=== PATIENT | male | born 1955 | race Caucasian/White ===

== ENCOUNTER 2018-09-16 11:02 | Day surgery (SDC) | payer OTHER ==
[~2018-09-16 11:02] MED LIST: CIPROFLOXACIN 400 MG in D5W 200 ML IVPB; GLYCOPYRROLATE 0.4 MG INJ; NEOSTIGMINE 3 MG/3 ML SYRINGE
[2018-09-16] MEDS ORDERED: PROPOFOL 20 ML (13:26)
[2018-09-16] MEDS ORDERED: MIDAZOLAM 1 MG/ML 2 ML INJ (13:26)
[2018-09-16] MEDS ORDERED: LIDOCAINE 1% (MDV) 20 ML INJ (13:26)
[2018-09-16] MEDS: IOHEXOL 300MG/ML 30 ML BTL (13:27)
[2018-09-16] MEDS ORDERED: ROCURONIUM 50 MG INJ (13:31)
[2018-09-16] MEDS ORDERED: DEXAMETHASONE 4 MG/ML 5 ML INJ (13:36)
[2018-09-16] MEDS ORDERED: FENTAnyl 50 MCG/ML VIAL (13:41)
[2018-09-16] MEDS ORDERED: ONDANSETRON 4 MG INJ IV (15:00)
[2018-09-16] MEDS ORDERED: hydrALAzine 20 MG INJ IV (15:00)
[2018-09-16] MEDS ORDERED: LABETALOL HCL 20MG INJ IV (15:00)
[2018-09-16] MEDS ORDERED: CIPROFLOXACIN 400MG/D5W 200 ML (15:02)
[2018-09-16] MEDS: HYDROmorphONE 1 MG/5 ML IV SYRINGE IV ×2 (15:05→15:22)
[2018-09-16] MEDS: HYDROCODONE/APAP (5/325) TAB PO (16:53)
== END 2018-09-16 17:30 | disposition home or self-care (01) ==
LOC: SDS 11:02
DX: N20.1 Calculus of ureter (principal)
CPT/HCPCS: 52332; 74430; 88300

== ENCOUNTER 2018-10-15 09:15 | Inpatient (IN) | payer OTHER ==
[2018-10-15] MEDS: SOD CHLORIDE 0.9% 1,000 ML IV ×3 (12:06→23:28)
[2018-10-15] MEDS: CEFTRIAXONE 1 GM/50 ML (PMX) 50 ML IVPB (12:08)
[2018-10-15] MEDS: morphine 2 MG INJ IV ×2 (12:09→19:55)
[2018-10-15 13:09] LABS: ADD MAN DIFF? NO
[2018-10-15 13:14] LABS: BASOPHILS % 0.3 % (0.0-2.0); EOSINOPHILS % 0.4 % (0.0-7.0); HEMATOCRIT 39.1 % (42.0-52.0); HEMOGLOBIN 13.1 g/dl (14.0-18.0); LYMPHOCYTES # 1.6 10^3/ul (0.8-2.9); LYMPHOCYTES % 15.4 % (15.0-51.0); MEAN CORPUSCULAR HEMOGLOBIN 30.4 pg (29.0-33.0); MEAN CORPUSCULAR HGB CONC 33.5 g/dl (32.0-37.0); MEAN CORPUSCULAR VOLUME 90.7 fl (82.0-101.0); MEAN PLATELET VOLUME 9.8 fl (7.4-10.4); MONOCYTES % 9.9 % (0.0-11.0); NEUTROPHIL # 7.5 10^3/ul (1.6-7.5); NEUTROPHILS % 73.6 % (39.0-77.0); PLATELET COUNT 129 10^3/UL (140-415); RED BLOOD COUNT 4.31 10^6/ul (4.70-6.10); RED CELL DISTRIBUTION WIDTH 12.9 % (11.5-14.5)
[2018-10-15 13:14] LABS: WHITE BLOOD COUNT 10.2 10^3/ul (4.8-10.8)
[2018-10-15 13:32] LABS: ANION GAP 10 (5-13); BLOOD UREA NITROGEN 42 mg/dl (7-20); CALCIUM 8.4 mg/dl (8.4-10.2); CARBON DIOXIDE 22 mmol/L (21-31); CHLORIDE 108 mmol/L (97-110); CREATININE 8.22 mg/dl (0.61-1.24); Estimated GFR 7 mL/min (>60); GLUCOSE 84 mg/dl (70-220); POTASSIUM 4.5 mmol/L (3.5-5.1); SODIUM 140 mmol/L (135-144)
[2018-10-15 19:59] LABS: INR 1.08; PROTIME 14.1 Sec (11.9-14.9); PT RATIO 1.1
[2018-10-15] MEDS: GABAPENTIN 100 MG CAP PO (21:19)
[2018-10-15] MEDS ORDERED: ONDANSETRON 4 MG INJ IV (22:30)
[2018-10-15 23:19] LABS: ADD UMIC YES; UR ASCORBIC ACID NEGATIVE (NEGATIVE); UR BACTERIA FEW /HPF (NONE SEEN); UR BILIRUBIN (Dip) NEGATIVE (NEGATIVE); UR BLOOD (Dip) 3+ mg/dL (NEGATIVE); UR CLARITY CLOUDY (CLEAR); UR COLOR YELLOW (YELLOW); UR GLUCOSE (Dip) NEGATIVE (NEGATIVE); UR KETONES (Dip) NEGATIVE (NEGATIVE); UR LEUKOCYTE ESTERASE (Dip) 3+ Leu/ul (NEGATIVE); UR MUCUS FEW /HPF (NONE SEEN); UR NITRITE (Dip) NEGATIVE (NEGATIVE); UR RBC > 182 /HPF (0-5); UR SPECIFIC GRAVITY (Dip) 1.008 (1.003-1.030); UR TOTAL PROTEIN (Dip) 2+ mg/dl (NEGATIVE); UR UROBILINOGEN (Dip) NEGATIVE (NEGATIVE); UR WBC 93 /HPF (0-5)
[2018-10-16 07:04] LABS: ANION GAP 7 (5-13); BLOOD UREA NITROGEN 54 mg/dl (7-20); CALCIUM 8.1 mg/dl (8.4-10.2); CARBON DIOXIDE 23 mmol/L (21-31); CHLORIDE 108 mmol/L (97-110); CREATININE 10.18 mg/dl (0.61-1.24); Estimated GFR 5 mL/min (>60); GLUCOSE 88 mg/dl (70-220); POTASSIUM 4.8 mmol/L (3.5-5.1); SODIUM 138 mmol/L (135-144)
[2018-10-16 07:04] LABS: PHOSPHORUS 5.8 mg/dl (2.5-4.9)
[2018-10-16] MEDS: SOD CHLORIDE 0.9% 1,000 ML IV ×3 (08:00→23:58)
[2018-10-16] MEDS: GABAPENTIN 100 MG CAP PO ×3 (08:32→21:25)
[2018-10-16] MEDS: morphine 2 MG INJ IV (10:19)
[2018-10-16] MEDS: CEFTRIAXONE 1 GM/50 ML (PMX) 50 ML IVPB (12:58)
[2018-10-16] MEDS: METOPROLOL (XL) 25 MG TAB PO (12:59)
[2018-10-16] MEDS: hydrALAzine 20 MG INJ IV (16:20)
[2018-10-16] MEDS ORDERED: LIDOCAINE 2% 20 ML UROJET SYRINGE (17:27)
[2018-10-16] MEDS ORDERED: IOHEXOL 300MG/ML 30 ML BTL (17:28)
[2018-10-16] MEDS ORDERED: PROPOFOL 20 ML (18:20)
[2018-10-16] MEDS ORDERED: ONDANSETRON 4 MG INJ (18:20)
[2018-10-16] MEDS ORDERED: ROCURONIUM 50 MG INJ (18:20)
[2018-10-16] MEDS ORDERED: LIDOCAINE 2% (SDV) 5 ML INJ (18:20)
[2018-10-16] MEDS ORDERED: SUGAMMADEX SODIUM 200 MG/2 ML VIAL IV (18:41)
[2018-10-16] MEDS: LABETALOL HCL 20MG INJ IV (19:18)
[2018-10-16] MEDS ORDERED: hydrALAzine 20 MG INJ IV (19:30)
[2018-10-16] MEDS: HYDROmorphONE 1 MG/5 ML IV SYRINGE IV ×3 (19:33→19:58)
[2018-10-16] MEDS: ONDANSETRON 4 MG INJ IV (19:33)
[2018-10-17] MEDS: SOD CHLORIDE 0.9% 1,000 ML IV ×2 (04:00→14:00)
[2018-10-17] MEDS: morphine 2 MG INJ IV ×3 (04:42→21:04)
[2018-10-17 06:06] LABS: ADD MAN DIFF? NO
[2018-10-17 06:26] LABS: WHITE BLOOD COUNT 10.1 10^3/ul (4.8-10.8)
[2018-10-17 06:26] LABS: BASOPHILS % 0.2 % (0.0-2.0); EOSINOPHILS % 0.2 % (0.0-7.0); HEMATOCRIT 41.5 % (42.0-52.0); HEMOGLOBIN 13.6 g/dl (14.0-18.0); LYMPHOCYTES # 0.9 10^3/ul (0.8-2.9); LYMPHOCYTES % 8.9 % (15.0-51.0); MEAN CORPUSCULAR HEMOGLOBIN 30.5 pg (29.0-33.0); MEAN CORPUSCULAR HGB CONC 32.8 g/dl (32.0-37.0); MEAN PLATELET VOLUME 10.1 fl (7.4-10.4); MONOCYTES % 9.8 % (0.0-11.0); NEUTROPHIL # 8.2 10^3/ul (1.6-7.5); NEUTROPHILS % 80.4 % (39.0-77.0); PLATELET COUNT 137 10^3/UL (140-415); RED BLOOD COUNT 4.46 10^6/ul (4.70-6.10); RED CELL DISTRIBUTION WIDTH 13.1 % (11.5-14.5)
[2018-10-17 06:53] LABS: ANION GAP 10 (5-13); BLOOD UREA NITROGEN 51 mg/dl (7-20); CALCIUM 8.7 mg/dl (8.4-10.2); CARBON DIOXIDE 20 mmol/L (21-31); CHLORIDE 110 mmol/L (97-110); CREATININE 8.62 mg/dl (0.61-1.24); Estimated GFR 6 mL/min (>60); GLUCOSE 140 mg/dl (70-220); PHOSPHORUS 4.7 mg/dl (2.5-4.9); POTASSIUM 5.2 mmol/L (3.5-5.1); SODIUM 140 mmol/L (135-144); URIC ACID 10.2 mg/dl (3.1-7.9)
[2018-10-17] MEDS: GABAPENTIN 100 MG CAP PO ×3 (08:15→21:01)
[2018-10-17] MEDS: CALCIUM ACETATE 667 MG CAP PO ×3 (08:15→17:55)
[2018-10-17] MEDS: METOPROLOL (XL) 25 MG TAB PO (08:16)
[2018-10-17] MEDS: PANTOPRAZOLE 40 MG INJ IV (12:00)
[2018-10-17] MEDS: SODIUM POLYSTYRENE 15 GM KIT (POWDER + SORBITOL) PO (13:02)
[2018-10-17] MEDS: CEFEPIME 1GM/50 ML (PMX) 50 ML IVPB (13:02)
[2018-10-17] MEDS: COLCHICINE 0.6 MG TAB PO ×2 (13:02→16:26)
[2018-10-17] MEDS: ACETAMINOPHEN 500 MG TAB PO (13:03)
[2018-10-17] MEDS: hydrALAzine 20 MG INJ IV (13:03)
[2018-10-17 13:07] LABS: ADD UMIC YES; UR ASCORBIC ACID NEGATIVE (NEGATIVE); UR BILIRUBIN (Dip) NEGATIVE (NEGATIVE); UR BLOOD (Dip) 3+ mg/dL (NEGATIVE); UR CLARITY SLIGHTLY CLOUDY (CLEAR); UR COLOR YELLOW (YELLOW); UR GLUCOSE (Dip) NEGATIVE (NEGATIVE); UR KETONES (Dip) NEGATIVE (NEGATIVE); UR LEUKOCYTE ESTERASE (Dip) TRACE Leu/ul (NEGATIVE); UR NITRITE (Dip) NEGATIVE (NEGATIVE); UR RBC > 182 /HPF (0-5); UR SPECIFIC GRAVITY (Dip) 1.006 (1.003-1.030); UR TOTAL PROTEIN (Dip) NEGATIVE (NEGATIVE); UR UROBILINOGEN (Dip) NEGATIVE (NEGATIVE); UR WBC 28 /HPF (0-5)
[2018-10-17 18:50] LABS: TROPONIN-I 0.013 ng/ml (0.000-0.120)
[2018-10-18 01:48] LABS: TROPONIN-I < 0.012 ng/ml (0.000-0.120)
[2018-10-18] MEDS: morphine 2 MG INJ IV ×2 (03:10→20:08)
[2018-10-18] MEDS: PANTOPRAZOLE 40 MG INJ IV (06:06)
[2018-10-18 06:47] LABS: TROPONIN-I 0.016 ng/ml (0.000-0.120)
[2018-10-18 06:47] LABS: ALANINE AMINOTRANSFERASE 20 IU/L (13-69); ALBUMIN 3.5 g/dl (3.3-4.9); ALBUMIN/GLOBULIN RATIO 1.02; ALKALINE PHOSPHATASE 58 IU/L (42-121); ANION GAP 10 (5-13); ASPARTATE AMINO TRANSFERASE 20 IU/L (15-46); BILIRUBIN,INDIRECT 0.5 mg/dl (0-1.1); BILIRUBIN,TOTAL 0.5 mg/dl (0.2-1.3); BLOOD UREA NITROGEN 36 mg/dl (7-20); CALCIUM 8.7 mg/dl (8.4-10.2); CARBON DIOXIDE 22 mmol/L (21-31); CHLORIDE 107 mmol/L (97-110); CREATININE 4.07 mg/dl (0.61-1.24); Estimated GFR 15 mL/min (>60); GLUCOSE 115 mg/dl (70-220); POTASSIUM 4.7 mmol/L (3.5-5.1); SODIUM 139 mmol/L (135-144); TOTAL PROTEIN 6.9 g/dl (6.1-8.1)
[2018-10-18] MEDS: GABAPENTIN 100 MG CAP PO ×3 (07:48→20:08)
[2018-10-18] MEDS: CALCIUM ACETATE 667 MG CAP PO ×3 (07:48→17:09)
[2018-10-18] MEDS: ACETAMINOPHEN 500 MG TAB PO ×2 (07:48→15:24)
[2018-10-18] MEDS: SOD CHLORIDE 0.9% 1,000 ML IV ×3 (08:39→20:00)
[2018-10-18] MEDS: COLCHICINE 0.6 MG TAB PO (08:39)
[2018-10-18] MEDS: METOPROLOL (XL) 50 MG TAB PO (08:39)
[2018-10-18] MEDS ORDERED: COLCHICINE 0.6 MG TAB PO (09:00)
[2018-10-18] MEDS: CEFEPIME 1GM/50 ML (PMX) 50 ML IVPB (12:22)
[2018-10-18] MEDS: ZOLPIDEM 5 MG TAB PO (21:57)
[2018-10-19] MEDS: PANTOPRAZOLE 40 MG INJ IV (05:43)
[2018-10-19] MEDS: morphine 2 MG INJ IV ×2 (05:43→20:12)
[2018-10-19] MEDS: HYDROCODONE/APAP (5/325) TAB PO (05:52)
[2018-10-19] MEDS: SOD CHLORIDE 0.9% 1,000 ML IV ×2 (06:00→23:52)
[2018-10-19] MEDS: CALCIUM ACETATE 667 MG CAP PO (08:01)
[2018-10-19] MEDS: GABAPENTIN 100 MG CAP PO ×3 (08:01→20:10)
[2018-10-19] MEDS: METOPROLOL (XL) 50 MG TAB PO (08:02)
[2018-10-19] MEDS: COLCHICINE 0.6 MG TAB PO (08:02)
[2018-10-19] MEDS: CEFEPIME 1GM/50 ML (PMX) 50 ML IVPB (12:10)
[2018-10-19] MEDS: ZOLPIDEM 5 MG TAB PO (20:10)
[2018-10-20] MEDS: PANTOPRAZOLE 40 MG INJ IV (05:39)
[2018-10-20] MEDS: IBUPROFEN 600 MG TAB PO ×2 (05:40→20:53)
[2018-10-20 06:26] LABS: ADD MAN DIFF? NO
[2018-10-20 06:35] LABS: WHITE BLOOD COUNT 10.8 10^3/ul (4.8-10.8)
[2018-10-20 06:35] LABS: BASOPHILS % 0.4 % (0.0-2.0); EOSINOPHILS # 0.1 10^3/ul (0.0-0.5); EOSINOPHILS % 1.2 % (0.0-7.0); HEMATOCRIT 42.1 % (42.0-52.0); HEMOGLOBIN 13.9 g/dl (14.0-18.0); LYMPHOCYTES # 1.7 10^3/ul (0.8-2.9); LYMPHOCYTES % 15.9 % (15.0-51.0); MEAN CORPUSCULAR HEMOGLOBIN 30.1 pg (29.0-33.0); MEAN CORPUSCULAR VOLUME 91.1 fl (82.0-101.0); MEAN PLATELET VOLUME 10.1 fl (7.4-10.4); MONOCYTE # 1.1 10^3/ul (0.3-0.9); MONOCYTES % 10.3 % (0.0-11.0); NEUTROPHIL # 7.8 10^3/ul (1.6-7.5); NEUTROPHILS % 71.7 % (39.0-77.0); PLATELET COUNT 180 10^3/UL (140-415); RED BLOOD COUNT 4.62 10^6/ul (4.70-6.10)
[2018-10-20] MEDS: METOPROLOL (XL) 50 MG TAB PO (08:08)
[2018-10-20] MEDS: GABAPENTIN 100 MG CAP PO ×3 (08:08→20:53)
[2018-10-20] MEDS: COLCHICINE 0.6 MG TAB PO (08:08)
[2018-10-20] MEDS: ACETAMINOPHEN 500 MG TAB PO ×2 (08:14→12:33)
[2018-10-20 08:18] LABS: ANION GAP 10 (5-13); BLOOD UREA NITROGEN 38 mg/dl (7-20); CALCIUM 9.8 mg/dl (8.4-10.2); CARBON DIOXIDE 25 mmol/L (21-31); CHLORIDE 106 mmol/L (97-110); CREATININE 2.46 mg/dl (0.61-1.24); Estimated GFR 27 mL/min (>60); GLUCOSE 98 mg/dl (70-220); POTASSIUM 4.8 mmol/L (3.5-5.1); SODIUM 141 mmol/L (135-144)
[2018-10-20] MEDS: CEFEPIME 1GM/50 ML (PMX) 50 ML IVPB (12:28)
[2018-10-20] MEDS: ZOLPIDEM 5 MG TAB PO (21:16)
[2018-10-20] MEDS: SOD CHLORIDE 0.9% 1,000 ML IV (23:52)
[2018-10-21] MEDS: ACETAMINOPHEN 500 MG TAB PO ×3 (03:39→23:49)
[2018-10-21] MEDS: PANTOPRAZOLE (EC) 40 MG TAB PO (06:00)
[2018-10-21 06:45] LABS: ADD MAN DIFF? NO; BASOPHILS % 0.5 % (0.0-2.0); EOSINOPHILS # 0.2 10^3/ul (0.0-0.5); EOSINOPHILS % 2.7 % (0.0-7.0); HEMATOCRIT 41.8 % (42.0-52.0); HEMOGLOBIN 13.6 g/dl (14.0-18.0); LYMPHOCYTES # 1.7 10^3/ul (0.8-2.9); LYMPHOCYTES % 22.1 % (15.0-51.0); MEAN CORPUSCULAR HEMOGLOBIN 30.1 pg (29.0-33.0); MEAN CORPUSCULAR HGB CONC 32.5 g/dl (32.0-37.0); MEAN CORPUSCULAR VOLUME 92.5 fl (82.0-101.0); MEAN PLATELET VOLUME 9.7 fl (7.4-10.4); MONOCYTE # 0.9 10^3/ul (0.3-0.9); MONOCYTES % 11.4 % (0.0-11.0); NEUTROPHIL # 4.7 10^3/ul (1.6-7.5); NEUTROPHILS % 62.6 % (39.0-77.0); PLATELET COUNT 197 10^3/UL (140-415); RED BLOOD COUNT 4.52 10^6/ul (4.70-6.10); RED CELL DISTRIBUTION WIDTH 13.1 % (11.5-14.5)
[2018-10-21 06:45] LABS: WHITE BLOOD COUNT 7.5 10^3/ul (4.8-10.8)
[2018-10-21 07:33] LABS: ANION GAP 11 (5-13); BLOOD UREA NITROGEN 44 mg/dl (7-20); CALCIUM 9.7 mg/dl (8.4-10.2); CARBON DIOXIDE 24 mmol/L (21-31); CHLORIDE 107 mmol/L (97-110); CREATININE 2.32 mg/dl (0.61-1.24); Estimated GFR 29 mL/min (>60); GLUCOSE 97 mg/dl (70-220); POTASSIUM 4.4 mmol/L (3.5-5.1); SODIUM 142 mmol/L (135-144)
[2018-10-21] MEDS: COLCHICINE 0.6 MG TAB PO (08:31)
[2018-10-21] MEDS: GABAPENTIN 100 MG CAP PO ×3 (08:31→20:59)
[2018-10-21] MEDS: METOPROLOL (XL) 50 MG TAB PO (08:32)
[2018-10-21] MEDS: CEFEPIME 1GM/50 ML (PMX) 50 ML IVPB (12:39)
[2018-10-21] MEDS ORDERED: CEFAZOLIN 1 GM INJ (18:29)
[2018-10-21] MEDS ORDERED: FENTAnyl 50 MCG/ML VIAL (18:29)
[2018-10-21] MEDS ORDERED: PROPOFOL 20 ML (18:29)
[2018-10-21] MEDS ORDERED: MIDAZOLAM 1 MG/ML 2 ML INJ (18:29)
[2018-10-21] MEDS ORDERED: DEXAMETHASONE 4 MG/ML 5 ML INJ (18:59)
[2018-10-21] MEDS ORDERED: METOCLOPRAMIDE 10 MG INJ (18:59)
[2018-10-21] MEDS ORDERED: ROCURONIUM 50 MG INJ (18:59)
[2018-10-21] MEDS ORDERED: KETOROLAC 30 MG INJ (18:59)
[2018-10-21] MEDS ORDERED: ONDANSETRON 4 MG INJ (18:59)
[2018-10-21] MEDS ORDERED: METOCLOPRAMIDE 10 MG INJ IV (19:00)
[2018-10-21] MEDS ORDERED: EPHEDrine SULFATE 50 MG/5 ML SYG IV (19:00)
[2018-10-21] MEDS ORDERED: KETOROLAC 30 MG INJ IV (19:00)
[2018-10-21] MEDS ORDERED: ONDANSETRON 4 MG INJ IV (19:00)
[2018-10-21] MEDS ORDERED: OXYCODONE/ACETAMINOPHEN (5/325) TAB PO ×2 (19:00)
[2018-10-21] MEDS ORDERED: LABETALOL HCL 20MG INJ IV (19:00)
[2018-10-21] MEDS ORDERED: HYDROmorphONE 1 MG/5 ML IV SYRINGE IV ×3 (19:00)
[2018-10-21] MEDS ORDERED: hydrALAzine 20 MG INJ IV (19:00)
[2018-10-21] MEDS ORDERED: FENTAnyl 50 MCG/ML VIAL IV ×3 (19:00)
[2018-10-21] MEDS ORDERED: FUROSEMIDE 20 MG INJ (19:05)
[2018-10-21] MEDS ORDERED: NEOSTIGMINE 10 MG INJ (19:24)
[2018-10-21] MEDS ORDERED: GLYCOPYRROLATE 0.4 MG INJ (19:24)
[2018-10-21] MEDS: IBUPROFEN 600 MG TAB PO (20:59)
[2018-10-21] MEDS: LACTATED RINGER'S 1,000 ML IV (21:00)
[2018-10-21] MEDS: SOD CHLORIDE 0.9% 1,000 ML IV (23:50)
[2018-10-21] MEDS: ZOLPIDEM 5 MG TAB PO (23:50)
[2018-10-22] MEDS: LACTATED RINGER'S 1,000 ML IV ×2 (04:53→12:18)
[2018-10-22] MEDS: PANTOPRAZOLE (EC) 40 MG TAB PO (05:29)
[2018-10-22] MEDS: ACETAMINOPHEN 500 MG TAB PO ×2 (05:35→09:12)
[2018-10-22 06:47] LABS: ADD MAN DIFF? NO
[2018-10-22 06:52] LABS: WHITE BLOOD COUNT 7.8 10^3/ul (4.8-10.8)
[2018-10-22 06:52] LABS: BASOPHILS % 0.3 % (0.0-2.0); HEMATOCRIT 39.2 % (42.0-52.0); HEMOGLOBIN 13.1 g/dl (14.0-18.0); LYMPHOCYTES # 0.9 10^3/ul (0.8-2.9); LYMPHOCYTES % 11.8 % (15.0-51.0); MEAN CORPUSCULAR HEMOGLOBIN 30.6 pg (29.0-33.0); MEAN CORPUSCULAR HGB CONC 33.4 g/dl (32.0-37.0); MEAN CORPUSCULAR VOLUME 91.6 fl (82.0-101.0); MEAN PLATELET VOLUME 9.8 fl (7.4-10.4); MONOCYTE # 0.2 10^3/ul (0.3-0.9); MONOCYTES % 2.1 % (0.0-11.0); NEUTROPHIL # 6.6 10^3/ul (1.6-7.5); NEUTROPHILS % 85.3 % (39.0-77.0); PLATELET COUNT 219 10^3/UL (140-415); RED BLOOD COUNT 4.28 10^6/ul (4.70-6.10); RED CELL DISTRIBUTION WIDTH 12.6 % (11.5-14.5)
[2018-10-22 07:26] LABS: ANION GAP 13 (5-13); BLOOD UREA NITROGEN 43 mg/dl (7-20); CALCIUM 9.2 mg/dl (8.4-10.2); CARBON DIOXIDE 20 mmol/L (21-31); CHLORIDE 106 mmol/L (97-110); CREATININE 2.25 mg/dl (0.61-1.24); Estimated GFR 30 mL/min (>60); GLUCOSE 131 mg/dl (70-220); POTASSIUM 5.1 mmol/L (3.5-5.1); SODIUM 139 mmol/L (135-144)
[2018-10-22] MEDS: METOPROLOL (XL) 50 MG TAB PO (09:12)
[2018-10-22] MEDS: COLCHICINE 0.6 MG TAB PO (09:12)
[2018-10-22] MEDS: GABAPENTIN 100 MG CAP PO ×2 (09:12→12:34)
[2018-10-22] MEDS: CEFEPIME 1GM/50 ML (PMX) 50 ML IVPB (12:34)
== END 2018-10-22 17:13 | disposition home or self-care (01) | DRG 661 ==
LOC: TEL 10-18 17:56 → 2NE 09:15 → TEL 10-16 19:26
PROC: 0T768DZ Dilation of Right Ureter with Intraluminal Device, Via Natural or Artificial Opening Endoscopic (ICD-10-PCS; principal; 2018-10-16 17:30)
PROC: 0TF3XZZ Fragmentation in Right Kidney Pelvis, External Approach (ICD-10-PCS; 2018-10-16 17:57)
DX: N13.6 Pyonephrosis (principal); N17.0 Acute kidney failure with tubular necrosis; I12.9 Hypertensive chronic kidney disease with stage 1 through stage 4 chronic kidney disease, or unspecified chronic kidney disease; E66.9 Obesity, unspecified; Z68.32 Body mass index [BMI] 32.0-32.9, adult; D50.9 Iron deficiency anemia, unspecified; E83.39 Other disorders of phosphorus metabolism; K57.90 Diverticulosis of intestine, part unspecified, without perforation or abscess without bleeding; K76.0 Fatty (change of) liver, not elsewhere classified; M10.9 Gout, unspecified; M25.469 Effusion, unspecified knee; N18.9 Chronic kidney disease, unspecified; M25.562 Pain in left knee; M25.561 Pain in right knee
CPT/HCPCS: 71045; 73560; 74018; 74176; 74430; 80048; 80053; 81001; 84100; 84484; 84560; 85025; 85610; 87081; 87086; 93005

== ENCOUNTER 2018-12-12 08:30 | Day surgery (SDC) | payer OTHER ==
[~2018-12-12 08:30] MED LIST changes: -CIPROFLOXACIN 400 MG in D5W 200 ML IVPB; -GLYCOPYRROLATE 0.4 MG INJ; +LIDOCAINE 2% (SDV) 5 ML INJ; -NEOSTIGMINE 3 MG/3 ML SYRINGE; +PROPOFOL 200 MG INJ; +ROCURONIUM 50 MG INJ
[2018-12-12 09:24] LABS: ADD MAN DIFF? NO
[2018-12-12 09:29] LABS: BASOPHILS % 0.5 % (0.0-2.0); EOSINOPHILS # 0.1 10^3/ul (0.0-0.5); EOSINOPHILS % 1.5 % (0.0-7.0); HEMATOCRIT 38.8 % (42.0-52.0); HEMOGLOBIN 13.1 g/dl (14.0-18.0); LYMPHOCYTES # 1.6 10^3/ul (0.8-2.9); LYMPHOCYTES % 26.4 % (15.0-51.0); MEAN CORPUSCULAR HEMOGLOBIN 30.6 pg (29.0-33.0); MEAN CORPUSCULAR HGB CONC 33.8 g/dl (32.0-37.0); MEAN CORPUSCULAR VOLUME 90.7 fl (82.0-101.0); MEAN PLATELET VOLUME 9.8 fl (7.4-10.4); MONOCYTE # 0.5 10^3/ul (0.3-0.9); NEUTROPHIL # 3.8 10^3/ul (1.6-7.5); NEUTROPHILS % 62.3 % (39.0-77.0); PLATELET COUNT 140 10^3/UL (140-415); RED BLOOD COUNT 4.28 10^6/ul (4.70-6.10); RED CELL DISTRIBUTION WIDTH 13.6 % (11.5-14.5)
[2018-12-12] MEDS ORDERED: CEFTRIAXONE 1 GM/50 ML (PMX) 50 ML IVPB (09:30)
[2018-12-12 09:49] LABS: PARTIAL THROMBOPLASTIN TIME 31.1 Sec (23.0-35.0)
[2018-12-12 09:51] LABS: ALANINE AMINOTRANSFERASE 21 IU/L (13-69); ALBUMIN/GLOBULIN RATIO 1.42; ALKALINE PHOSPHATASE 67 IU/L (42-121); ANION GAP 12 (5-13); ASPARTATE AMINO TRANSFERASE 18 IU/L (15-46); BILIRUBIN,INDIRECT 0.4 mg/dl (0-1.1); BILIRUBIN,TOTAL 0.4 mg/dl (0.2-1.3); CALCIUM 9.5 mg/dl (8.4-10.2); CARBON DIOXIDE 25 mmol/L (21-31); CHLORIDE 108 mmol/L (97-110); Estimated GFR 33 mL/min (>60); GLUCOSE 92 mg/dl (70-220); TOTAL PROTEIN 6.8 g/dl (6.1-8.1)
[2018-12-12 09:54] LABS: BLOOD UREA NITROGEN 28 mg/dl (7-20); CREATININE 2.06 mg/dl (0.61-1.24)
[2018-12-12 09:57] LABS: POTASSIUM 4.5 mmol/L (3.5-5.1); SODIUM 145 mmol/L (135-144)
[2018-12-12 10:00] LABS: ADD UMIC YES; UR ASCORBIC ACID 20 mg/dL (NEGATIVE); UR BILIRUBIN (Dip) NEGATIVE (NEGATIVE); UR BLOOD (Dip) 3+ mg/dL (NEGATIVE); UR CLARITY CLOUDY (CLEAR); UR COLOR YELLOW (YELLOW); UR GLUCOSE (Dip) NEGATIVE (NEGATIVE); UR KETONES (Dip) NEGATIVE (NEGATIVE); UR LEUKOCYTE ESTERASE (Dip) 2+ Leu/ul (NEGATIVE); UR NITRITE (Dip) NEGATIVE (NEGATIVE); UR RBC > 182 /HPF (0-5); UR SPECIFIC GRAVITY (Dip) 1.014 (1.003-1.030); UR TOTAL PROTEIN (Dip) 2+ mg/dl (NEGATIVE); UR UROBILINOGEN (Dip) NEGATIVE (NEGATIVE); UR WBC 87 /HPF (0-5)
[2018-12-12 10:15] LABS: INR 0.89; PROTIME 12.1 Sec (11.9-14.9); PT RATIO 0.9
[2018-12-12] MEDS ORDERED: MIDAZOLAM 1 MG/ML 2 ML INJ (11:16)
[2018-12-12] MEDS ORDERED: FENTAnyl 50 MCG/ML VIAL (11:33)
[2018-12-12] MEDS ORDERED: ONDANSETRON 4 MG INJ (11:33)
[2018-12-12] MEDS ORDERED: DEXAMETHASONE 4 MG/ML 5 ML INJ (11:33)
[2018-12-12] MEDS ORDERED: FENTAnyl 50 MCG/ML VIAL IV ×2 (12:00)
[2018-12-12] MEDS ORDERED: OXYCODONE/ACETAMINOPHEN (5/325) TAB PO (12:00)
[2018-12-12] MEDS ORDERED: LABETALOL HCL 20MG INJ IV (12:00)
[2018-12-12] MEDS ORDERED: HYDROmorphONE 1 MG/5 ML IV SYRINGE IV ×2 (12:00)
[2018-12-12] MEDS ORDERED: FUROSEMIDE 20 MG INJ (12:13)
[2018-12-12] MEDS ORDERED: HYDROCODONE/APAP (5/325) TAB PO (12:30)
[2018-12-12] MEDS ORDERED: ONDANSETRON 4 MG INJ IV (12:30)
[2018-12-12] MEDS: LACTATED RINGER'S 1,000 ML IV (12:45)
[2018-12-12] MEDS: ONDANSETRON 4 MG INJ IV (13:13)
[2018-12-12] MEDS: OXYCODONE/ACETAMINOPHEN (5/325) TAB PO (13:13)
[2018-12-12] MEDS: hydrALAzine 20 MG INJ IV (13:59)
== END 2018-12-12 14:30 | disposition home or self-care (01) ==
LOC: SDS 08:30
DX: N20.0 Calculus of kidney (principal); I12.9 Hypertensive chronic kidney disease with stage 1 through stage 4 chronic kidney disease, or unspecified chronic kidney disease; N18.9 Chronic kidney disease, unspecified
CPT/HCPCS: 52356; 71045; 74018; 80053; 81001; 85025; 85610; 85730; 93005